=== PATIENT | female | born 1960 | race Caucasian/White ===

== ENCOUNTER 2017-06-07 08:53 | Emergency (ER) | payer MEDICAID ==
[~2017-06-07] VITALS: Ht 160 cm; Wt 70.5 kg
[2017-06-07] MEDS ORDERED: inhaler IH (08:56)
[2017-06-07] MEDS ORDERED: LISI-661 PO (08:56)
[2017-06-07] MEDS ORDERED: HYDROCODONE/ACETAMINOPHEN 5-325 MG TABLET PO ONE (09:30)
[2017-06-07] MEDS ORDERED: KETOROLAC TROMETHAMINE 60 MG/2 ML VIAL IM ONE (09:30)
[2017-06-07 10:20] VITALS: BP 140/80
== END 2017-06-07 11:19 | disposition home or self-care (01) ==
LOC: EMS 08:54
DX: N64.4 Mastodynia (principal); I10 Essential (primary) hypertension; J45.909 Unspecified asthma, uncomplicated
CPT/HCPCS: 96372; 99283; J1885

== ENCOUNTER 2022-05-22 14:46 | Emergency (ER) | payer MEDICAID, OTHER ==
[~2022-05-22] VITALS: Ht 162.6 cm; Wt 72.7 kg
[~2022-05-22 14:46] MED LIST: LISI-893 PO; inhaler IH
[2022-05-22] MEDS ORDERED: KETOROLAC TROMETHAMINE 30 MG/ML VIAL IM ONE (16:00)
[2022-05-22] MEDS ORDERED: LIDOCAINE 5% TRANSDERMAL PATCH TD ONE (16:00)
[2022-05-22] MEDS ORDERED: IBUP-1492 PO (17:18)
[2022-05-22] MEDS ORDERED: LIDO700A15 TP (17:19)
[2022-05-22 17:35] VITALS: BP 141/75
== END 2022-05-22 17:46 | disposition home or self-care (01) ==
LOC: EMS 14:50
DX: S40.211A Abrasion of right shoulder, initial encounter (principal); R07.89 Other chest pain; R07.81 Pleurodynia; J45.909 Unspecified asthma, uncomplicated; I10 Essential (primary) hypertension; Z90.49 Acquired absence of other specified parts of digestive tract; Z98.890 Other specified postprocedural states; W19.XXXA Unspecified fall, initial encounter; Y93.89 Activity, other specified; Y92.89 Other specified places as the place of occurrence of the external cause; Y99.8 Other external cause status
CPT/HCPCS: 99283; 71046; 96372; J1885